=== PATIENT | male | born 1950 | race Caucasian/White ===

== ENCOUNTER → 2018-04-23 12:25 | Outpatient (CLI) | payer MEDICARE, BC ==
[~2018-04-23 12:25] MED LIST: AVAPRO300 MG PO; BAYER CHEWABLE81 MG PO; COREG 3.1253.125 MG PO; FAMOTIDINE10 MG PO; GLUCOPHAGE500 MG PO; GLUCOTROL 5 MG T5 MG PO; HYDROCHLOROTH12.5 M1 PO; LIPITOR80 MG PO; NORVASC10 MG PO; PACERONE200 MG PO; PLAVIX75 MG PO
[2018-04-25 09:48] VITALS: BMI 35.5
== END | disposition home or self-care (01) ==
LOC: D.NM 12:25
PROVIDERS: ATTEND Internal Medicine Gastroenterology
DX: R94.5 Abnormal results of liver function studies (principal)

== ENCOUNTER 2018-04-25 08:18 | Outpatient (CLI) | payer MEDICARE, BC ==
[~2018-04-25] VITALS: Ht 177.8 cm; Wt 112.3 kg
[2018-04-25 08:31] LABS: BASOPHILS 0.5 % (0-2); EOSINOPHILS 0.4 % (0-7); HEMATOCRIT 42.9 % (42.0-54.0); HEMOGLOBIN 14.5 g/dL (13.5-17.5); IMMATURE GRANULOCYTES 0.5 % (0-5); MCH 30.1 pg (26.0-34.0); MCHC 33.8 g/dL (31.0-37.0); MEAN PLATELET VOLUME 8.9 fL (7.4-10.4); MONOCYTES 10.3 % (2-11); NEUTROPHILS 74.3 % (40-80); PLATELET COUNT 194 10x3/uL (130-400); RBC 4.82 10x6/uL (4.20-6.10); RDW 14.3 % (11.5-14.5); WBC 9.5 10x3/uL (4.8-10.8)
[2018-04-25 08:43] LABS: ANION GAP 15.3 mmol/L (8-16); CALCIUM 9.4 mg/dL (8.5-10.1); CARBON DIOXIDE 27.6 mmol/L (21.0-32.0); CREATININE - SERUM 1.5 mg/dL (0.6-1.3); POTASSIUM - SERUM 4.9 mmol/L (3.5-5.1)
[2018-04-25 08:50] LABS: INR 1.01 (0.85-1.17); PROTIME 12.8 SECONDS (11.6-15.0)
[2018-04-25 08:51] LABS: APTT 29.3 SECONDS (22.8-39.4)
[2018-04-25] MEDS ORDERED: BAYER CHEWABLE81 MG PO (09:29)
[2018-04-25] MEDS ORDERED: NORVASC10 MG PO (09:30)
[2018-04-25] MEDS ORDERED: COREG 3.1253.125 MG PO (09:31)
[2018-04-25] MEDS ORDERED: AVAPRO300 MG PO (09:34)
[2018-04-25] MEDS ORDERED: HYDROCHLOROTH12.5 M1 PO (09:34)
[2018-04-25] MEDS ORDERED: PLAVIX75 MG PO (09:35)
[2018-04-25] MEDS ORDERED: PACERONE200 MG PO (09:36)
[2018-04-25] MEDS ORDERED: LIPITOR80 MG PO (09:36)
[2018-04-25] MEDS ORDERED: FAMOTIDINE10 MG PO (09:37)
[2018-04-25] MEDS ORDERED: GLUCOTROL 5 MG T5 MG PO (09:41)
[2018-04-25] MEDS ORDERED: GLUCOPHAGE500 MG PO (09:42)
[2018-04-25 09:48] VITALS: BP 116/67; Ht 177.8 cm; Wt 112.3 kg
--- NOTE | 2018-04-25 16:30 | NUR ---
ASSUMED CARE OF PATIENT. SITTING IN THE WAITING ROOM WAITING ON HIS TRANSPORTATION TO GET HERE FROM [facility]. DRESSING CDI.
--- NOTE | 2018-04-25 17:30 | NUR ---
DC'D HOME WITH FAMILY VIA PRIVATE VEHICLE. AMBULATED TO VEHICLE. STABLE AT TIME OF DC.
== END 2018-04-25 17:30 | disposition home or self-care (01) ==
LOC: D.SP 08:18 → D.CT 11:00 → D.SP 11:00
PROVIDERS: Specialist; ATTEND Internal Medicine Gastroenterology
DX: K76.0 Fatty (change of) liver, not elsewhere classified (principal); Z01.812 Encounter for preprocedural laboratory examination

== ENCOUNTER → 2018-05-02 07:10 | Outpatient (CLI) | payer MEDICARE, BC ==
[2018-04-25 09:48] VITALS: BMI 35.5
== END | disposition home or self-care (01) ==
LOC: D.US 07:10
PROVIDERS: ATTEND Internal Medicine Gastroenterology
DX: R94.5 Abnormal results of liver function studies (principal); K76.0 Fatty (change of) liver, not elsewhere classified